=== PATIENT | female | born 1980 | race Caucasian/White ===

== ENCOUNTER 2018-04-11 17:32 | Inpatient (IN) | payer MEDICAID ==
[~2018-04-11] VITALS: Ht 160 cm; Wt 87.1 kg
[2018-04-11 18:30] LABS: BASOPHIL % 0.6 % (0-2)
[2018-04-11 18:33] LABS: PLATELET COUNT 437 x10^3mcL (130-400); RED CELL DISTRIBUTION WIDTH 14.6 % (11.5-14.5)
[2018-04-11 18:37] LABS: CALCIUM 9.2 mg/dL (8.5-10.1); CARBON DIOXIDE 27.9 mmol/L (21-32); CHLORIDE SERUM 102 mmol/L (98-107); CREATININE SERUM 0.7 mg/dL (0.6-1.0); GFR1 > 60 mL/min; GLUCOSE SERUM 96 mg/dL (74-106); POTASSIUM SERUM 3.6 mmol/L (3.5-5.1); SODIUM SERUM 137 mmol/L (136-145)
[2018-04-11 18:42] LABS: ALKALINE PHOSPHATASE 244 U/L (46-116); ALT/SGPT 621 U/L (14-59); AMYLASE 38 U/L (25-115); AST/SGOT 400 U/L (15-37); BILIRUBIN TOTAL 1.64 mg/dL (0.20-1.00); CHOLESTEROL 203 mg/dL (<200); HDL CHOLESTEROL 41 mg/dL (40-60); LIPASE 163 IU/L (73-393); TOTAL PROTEIN, SERUM 8.1 g/dL (6.4-8.2)
[2018-04-11 19:10] LABS: microscopic required? YES; urine erythrocyte 2+ (NEGATIVE)
[2018-04-11 21:28] LABS: MAGNESIUM 2.1 mg/dL (1.8-2.4); PHOSPHOROUS 3.8 mg/dL (2.5-4.9)
[2018-04-11 21:35] VITALS: BP 125/81
[2018-04-12 05:09] VITALS: BP 113/71
[2018-04-12 06:30] LABS: BASOPHIL % 0.8 % (0-2); PLATELET COUNT 360 x10^3mcL (130-400); RED CELL DISTRIBUTION WIDTH 14.4 % (11.5-14.5)
[2018-04-12 07:03] LABS: CALCIUM 8.7 mg/dL (8.5-10.1); CARBON DIOXIDE 24.3 mmol/L (21-32); CHLORIDE SERUM 107 mmol/L (98-107); CREATININE SERUM 0.7 mg/dL (0.6-1.0); GFR1 > 60 mL/min; GLUCOSE SERUM 87 mg/dL (74-106); MAGNESIUM 1.9 mg/dL (1.8-2.4); PHOSPHOROUS 3.2 mg/dL (2.5-4.9); POTASSIUM SERUM 4.1 mmol/L (3.5-5.1); SODIUM SERUM 140 mmol/L (136-145)
[2018-04-12 08:00] VITALS: BP 111/66
[2018-04-12 09:35] LABS: BILIRUBIN DIRECT 0.22 mg/dL (0.0-0.2); BILIRUBIN TOTAL 0.5 mg/dL (0.20-1.00)
[2018-04-12 09:36] LABS: ALBUMIN 3.1 g/dL (3.4-5.0); TOTAL PROTEIN, SERUM 6.1 g/dL (6.4-8.2)
[2018-04-12 16:45] VITALS: BP 136/79
[2018-04-12 21:13] VITALS: BP 127/70
[2018-04-13 04:43] VITALS: BP 122/69
[2018-04-13 06:45] LABS: BASOPHIL % 0.2 % (0-2); PLATELET COUNT 371 x10^3mcL (130-400); RED CELL DISTRIBUTION WIDTH 14.3 % (11.5-14.5)
[2018-04-13 06:58] LABS: CALCIUM 8.9 mg/dL (8.5-10.1); CARBON DIOXIDE 26.1 mmol/L (21-32); CHLORIDE SERUM 103 mmol/L (98-107); CREATININE SERUM 0.7 mg/dL (0.6-1.0); GFR1 > 60 mL/min; GLUCOSE SERUM 98 mg/dL (74-106); POTASSIUM SERUM 3.7 mmol/L (3.5-5.1); SODIUM SERUM 137 mmol/L (136-145)
[2018-04-13 12:02] LABS: AMYLASE 2632 U/L (25-115)
[2018-04-13 12:17] LABS: LIPASE 26810 IU/L (73-393)
[2018-04-13 17:33] VITALS: BP 118/72
[2018-04-13 20:41] VITALS: BP 130/68
[2018-04-14 05:32] VITALS: BP 126/61
[2018-04-14 07:04] LABS: CALCIUM 8.5 mg/dL (8.5-10.1); CHLORIDE SERUM 100 mmol/L (98-107); CREATININE SERUM 0.7 mg/dL (0.6-1.0); GFR1 > 60 mL/min; GLUCOSE SERUM 85 mg/dL (74-106); POTASSIUM SERUM 3.4 mmol/L (3.5-5.1); SODIUM SERUM 136 mmol/L (136-145)
[2018-04-14 07:05] LABS: BASOPHIL % 0.2 % (0-2); PLATELET COUNT 334 x10^3mcL (130-400); RED CELL DISTRIBUTION WIDTH 14.1 % (11.5-14.5)
[2018-04-14 07:39] LABS: LIPASE 8349 IU/L (73-393)
[2018-04-14 08:34] VITALS: BP 107/62
[2018-04-14 12:20] LABS: BILIRUBIN DIRECT 2.52 mg/dL (0.0-0.2); BILIRUBIN TOTAL 3.2 mg/dL (0.20-1.00); TOTAL PROTEIN, SERUM 6.5 g/dL (6.4-8.2)
[2018-04-14 12:32] LABS: ALBUMIN 2.9 g/dL (3.4-5.0)
[2018-04-14 18:23] VITALS: BP 150/80
[2018-04-14 20:53] VITALS: BP 147/72
[2018-04-15 05:15] VITALS: BP 122/71
[2018-04-15 06:16] LABS: BASOPHIL % 0.2 % (0-2); PLATELET COUNT 317 x10^3mcL (130-400); RED CELL DISTRIBUTION WIDTH 14.3 % (11.5-14.5)
[2018-04-15 06:21] LABS: CALCIUM 8.9 mg/dL (8.5-10.1); CARBON DIOXIDE 28.9 mmol/L (21-32); CHLORIDE SERUM 101 mmol/L (98-107); CREATININE SERUM 0.6 mg/dL (0.6-1.0); GFR1 > 60 mL/min; GLUCOSE SERUM 98 mg/dL (74-106); LIPASE 802 IU/L (73-393); POTASSIUM SERUM 3.7 mmol/L (3.5-5.1); SODIUM SERUM 136 mmol/L (136-145)
[2018-04-15 10:41] LABS: BILIRUBIN DIRECT 3.38 mg/dL (0.0-0.2); BILIRUBIN TOTAL 4.17 mg/dL (0.20-1.00); TOTAL PROTEIN, SERUM 6.7 g/dL (6.4-8.2)
[2018-04-15 10:42] LABS: ALBUMIN 2.8 g/dL (3.4-5.0)
[2018-04-15 18:49] VITALS: BP 127/73
[2018-04-15 21:19] VITALS: BP 127/73
[2018-04-16 06:02] VITALS: BP 110/70
[2018-04-16 06:48] LABS: BASOPHIL % 0.3 % (0-2); PLATELET COUNT 305 x10^3mcL (130-400)
[2018-04-16 06:59] LABS: RED CELL DISTRIBUTION WIDTH 14.6 % (11.5-14.5)
[2018-04-16 07:30] LABS: ALKALINE PHOSPHATASE 119 U/L (46-116); ALT/SGPT 101 U/L (14-59); AST/SGOT 13 U/L (15-37); BILIRUBIN TOTAL 0.85 mg/dL (0.20-1.00); CALCIUM 8.5 mg/dL (8.5-10.1); CARBON DIOXIDE 28.8 mmol/L (21-32); CHLORIDE SERUM 103 mmol/L (98-107); CREATININE SERUM 0.7 mg/dL (0.6-1.0); GFR1 > 60 mL/min; GLUCOSE SERUM 92 mg/dL (74-106); MAGNESIUM 2.2 mg/dL (1.8-2.4); PHOSPHOROUS 3.7 mg/dL (2.5-4.9); POTASSIUM SERUM 3.8 mmol/L (3.5-5.1); SODIUM SERUM 138 mmol/L (136-145); TOTAL PROTEIN, SERUM 6.2 g/dL (6.4-8.2)
[2018-04-16 07:32] LABS: ALBUMIN 2.3 g/dL (3.4-5.0)
[2018-04-16 07:40] LABS: BILIRUBIN DIRECT 0.57 mg/dL (0.0-0.2); BILIRUBIN TOTAL 0.84 mg/dL (0.20-1.00); TOTAL PROTEIN, SERUM 6.2 g/dL (6.4-8.2)
[2018-04-16 07:41] LABS: ALBUMIN 2.3 g/dL (3.4-5.0)
[2018-04-16 08:02] VITALS: BP 130/75
[2018-04-16 08:03] VITALS: BP 146/78
[2018-04-16 12:22] VITALS: BP 121/73
[2018-04-16 13:16] VITALS: BP 121/73
[2018-04-16] MEDS ORDERED: NORCO1 TA2 PO (13:39)
[2018-04-16] MEDS ORDERED: FLA500 PO (13:40)
[2018-04-16] MEDS ORDERED: LEVAQUIN750 MG PO (13:40)
[2018-04-16] MEDS ORDERED: LAC PO (13:41)
== END 2018-04-16 15:44 | disposition home or self-care (01) | DRG 951 ==
LOC: ED 17:32 → MU 20:46
PROVIDERS: Emergency Medicine; Internal Medicine; Internal Medicine Gastroenterology; Surgery
PROC: 0FC98ZZ Extirpation of Matter from Common Bile Duct, Via Natural or Artificial Opening Endoscopic (ICD-10-PCS; 2018-04-12 13:30)
PROC: BF10YZZ Fluoroscopy of Bile Ducts using Other Contrast (ICD-10-PCS; 2018-04-12 13:30)
PROC: 0FT44ZZ Resection of Gallbladder, Percutaneous Endoscopic Approach (ICD-10-PCS; principal; 2018-04-13 07:30)
DX: K65.9 Peritonitis, unspecified (principal); K85.90 Acute pancreatitis without necrosis or infection, unspecified; E44.0 Moderate protein-calorie malnutrition; K80.50 Calculus of bile duct without cholangitis or cholecystitis without obstruction; E87.6 Hypokalemia; E80.6 Other disorders of bilirubin metabolism; R74.0 Nonspecific elevation of levels of transaminase and lactic acid dehydrogenase [LDH]; Z68.34 Body mass index [BMI] 34.0-34.9, adult; E66.9 Obesity, unspecified
CPT/HCPCS: 43262; 90658; 94150; C1769; J0330; J1170; J1610; J1885; J1956; J2250; J2270; J2405; J2704; J2710; J3010; J3490; J7030; J7050; J7120; Q0092; Q9967